=== PATIENT | female | born 1985 | race Caucasian/White ===

== ENCOUNTER 2019-10-21 12:59 | Inpatient (IN) | payer MEDICAID ==
[~2019-10-21] VITALS: Ht 160 cm; Wt 72.7 kg
[2019-10-21] VITALS (7 sets, daily range): BP systolic 105–128; BP diastolic 65–89
--- NOTE | 2019-10-21 13:00 | NUR ---
ADRIAN GRANT presented to unit via W/C from ED, accompanied by S/O FOR REPEAT . ADRIAN GRANT weighed, gowned, voided, and to bed. EFHM and TOCO applied, VS taken. ADRIAN GRANT oriented to bed controls, call light, TV, heat, and A/C controls.
[2019-10-21] MEDS ORDERED: LACTATED RINGERS 1,000 ML IV PRN (13:16)
[2019-10-21] MEDS ORDERED: METOCLOPRAMIDE INJ 10 MG/2 ML (REGLAN) IV ONE (13:30)
[2019-10-21] MEDS ORDERED: CITRIC ACID/SOB CIT (BICITRA) 30 ML UDC PO ONE (13:30)
[2019-10-21] MEDS ORDERED: PROMETHAZINE INJ 25 MG/ML (PHENERGAN) AMP IVP PRN (13:30)
[2019-10-21] MEDS ORDERED: FAMOTIDINE 20MG/2ML IV (PEPCID) IV ONE (13:30)
[2019-10-21 13:47] LABS: AMPHETAMINE SCREEN, URINE NEGATIVE (NEGATIVE); BARBITURATE SCREEN URINE NEGATIVE (NEGATIVE); BENZODIAZEPINES SCREEN URINE NEGATIVE (NEGATIVE); CANNABINOID SCREEN, URINE NEGATIVE (NEGATIVE); COCAINE SCREEN URINE NEGATIVE (NEGATIVE); METHADONE STAT NEGATIVE (NEGATIVE); METHAMPHETAMINE SCREEN URINE S NEGATIVE (NEGATIVE); OPIATE SCREEN URINE NEGATIVE (NEGATIVE); OXYCODONE STAT NEGATIVE (NEGATIVE); PROPOXYPHENE STAT NEGATIVE (NEGATIVE); TRICYCLIC ANTIDEPRESSANTS SCRE NEGATIVE (NEGATIVE)
[2019-10-21] MEDS ORDERED: LACTATED RINGERS 1,000 ML IV ONE (13:49)
[2019-10-21 14:23] LABS: BILIRUBIN,URINE NEGATIVE (NEGATIVE); CLARITY,URINE CLEAR; COLOR,URINE YELLOW; GLUCOSE, URINE (UA) NEGATIVE (NEGATIVE); KETONES,URINE NEGATIVE (NEGATIVE); LEUKOCYTE ESTERASE ,URINE TRACE (NEGATIVE); NITRITE,URINE NEGATIVE (NEGATIVE); PH,URINE 6.5 (5-9); PROTEIN,URINE NEGATIVE (NEGATIVE)
[2019-10-21 14:32] LABS: BACTERIA,URINE TRACE /HPF
[2019-10-21] MEDS ORDERED: ACYC400T PO (15:01)
[2019-10-21] MEDS ORDERED: PREN-37 PO (15:02)
[2019-10-21] MEDS ORDERED: GABA-488 PO (15:02)
[2019-10-21] MEDS ORDERED: SERT100T PO (15:03)
[2019-10-21] MEDS ORDERED: PROM25TA14 PO (15:04)
[2019-10-21] MEDS ORDERED: ACETAMINOPHEN 500 MG TAB (TYLENOL) ONE (15:10)
[2019-10-21] MEDS ORDERED: GABAPENTIN 600 MG (NEURONTIN) TAB ONE (15:11)
[2019-10-21] MEDS: LACTATED RINGERS 1,000 ML IV PRN ×3 (15:12→19:15)
[2019-10-21] MEDS ORDERED: ACETAMINOPHEN 500 MG TAB (TYLENOL) PO ONE (15:15)
[2019-10-21] MEDS ORDERED: GABAPENTIN 600 MG (NEURONTIN) TAB PO ONE (16:30)
[2019-10-21 16:42] LABS: BASOPHILS % (AUTO) 0 % (0-10); EOSINOPHILS # (AUTO) 0.1 10^3/uL (0.0-0.3); EOSINOPHILS % (AUTO) 1 % (0-10); HEMATOCRIT 34 % (35-52); HEMOGLOBIN 11.3 G/DL (11.5-16.0); LYMPHOCYTES # (AUTO) 1.9 X 10^3 (1.0-4.0); LYMPHOCYTES % (AUTO) 11 % (12-44); MEAN CORPUSCULAR HEMOGLOBIN 29 PG (25-34); MEAN CORPUSCULAR HGB CONC 33 G/DL (32-36); MEAN CORPUSCULAR VOLUME 90 FL (80-99); MEAN PLATELET VOLUME 10.8 FL (7.4-10.4); MONOCYTES % (AUTO) 6 % (0-12); NEUTROPHILS # (AUTO) 13.2 X 10^3 (1.8-7.8); NEUTROPHILS % (AUTO) 82 % (42-75); PLATELET COUNT 326 10^3/uL (130-400); RED CELL DISTRIBUTION WIDTH 15.1 % (10.0-14.5); WHITE BLOOD COUNT 16.2 10^3/uL (4.3-11.0)
[2019-10-21] MEDS ORDERED: METOCLOPRAMIDE INJ 10 MG/2 ML (REGLAN) ONE (17:05)
[2019-10-21] MEDS ORDERED: FAMOTIDINE 20MG/2ML IV (PEPCID) ONE (17:06)
[2019-10-21] MEDS ORDERED: CITRIC ACID/SOB CIT (BICITRA) 30 ML UDC ONE (17:06)
[2019-10-21 17:14] LABS: RBC MORPH NORMAL
[2019-10-21 17:17] LABS: BAND NEUTROPHILS 3 %; EOSINOPHILS % (MANUAL) 1 %; LYMPHOCYTES % (MANUAL) 12 %; MONOCYTES % (MANUAL) 9 %; MYELOCYTES % 1 %; NEUTROPHILS % (MANUAL) 73 %
[2019-10-21] MEDS ORDERED: ceFAZolin INJECTION 1,000 MG in WATER (STERILE) FOR INJECTION 10 ML IV ONE (17:30)
[2019-10-21] MEDS ORDERED: fentaNYL INJECTION 100 MCG/2 ML AMP ONE (18:23)
[2019-10-21] MEDS ORDERED: KETAMINE/NaCl 50 MG/5 ML SYRINGE (ED ONLY) ONE (18:23)
[2019-10-21] MEDS ORDERED: MIDAZOLAM 2 MG/2 ML (VERSED) VIAL ONE (19:00)
[2019-10-21] MEDS ORDERED: OXYTOCIN PRE-MIX DRIP 500 ML IV ONE (19:53)
[2019-10-21] MEDS ORDERED: PHENYLEPHRINE 100 MCG/ML 10 ML (ANESTHESIA) SYR ONE (20:03)
[2019-10-21] MEDS ORDERED: KETOROLAC 30 MG/ML VIAL ONE (20:05)
[2019-10-21] MEDS ORDERED: ONDANSETRON 4 MG/2 ML (SDV) Z0FRAN ONE (20:05)
[2019-10-21] MEDS ORDERED: OXYTOCIN PRE-MIX DRIP 1,000 ML IV ONE (20:05)
[2019-10-21] MEDS ORDERED: OXYTOCIN PRE-MIX DRIP 500 ML IV SCH (20:31)
[2019-10-21] MEDS ORDERED: PATIENT MAY USE OWN MED,SINGLE MED PO SCH (20:45)
[2019-10-21] MEDS ORDERED: TETANUS,DIPTH,PERTUSS P/F (BOOSTRIX) 0.5 ML VIAL IM SCH (20:45)
[2019-10-21] MEDS ORDERED: MEASLES,MUMPS,RUBELLA 1 EA INJ SC SCH (20:45)
[2019-10-21] MEDS ORDERED: morphine INJ 4 MG/ML 1 ML (VIAL/SYRINGE) ONE (20:49)
--- NOTE | 2019-10-21 20:49 | Cesarean Section Operative ---
Procedure Procedure Note Pre-operative Diagnosis: Valeria Martino is a 33 /Para 3/ 2,Gestational Age 38 3/7 week previous section, non reassuring testing, history of Suboxone usage, gestational diabetes A2, known ovarian cyst Post-operative Diagnosis: same, severe adhesion, difficult extraction; right ovarian cyst/mass Procedure: repeat low transverse section, right salpingoophorectomy, post hemorrhage Physician: YENIFER SUAREZ Estimated blood loss: 2500 mL Disposition: stable Findings: Viable male infant, Apgars 8/8, pH, weight 7#, intact placenta, 3vc, Uterus with lower uterine segment window/near rupture/ right ovary with two cystic areas and two additional areas of solid mass area. She also had a small solid cystic area on the left tube but this appeared to be a peritubal cyst/embryologic and she also states she "would like to consider another child" and did not wish to have the tube removed. she states she had signed a form to have them removed in [place], but "now i don't know". Indications:Valeria Martino is a 33 year old at 38 3/7 weeks. I saw her for consultation today for repeat section. She was to have delivered in [place] because of history of Suboxone usage. Her PNC was in [place] but her OB wanted her to deliver with a NICU due to risk of YAMIL. However, Dr. Cody is her physician for Suboxone and history of narcotic abuse and Dr. Cody wanted her to deliver here so that she could better assist in her post operative pain management. She has has had Gestational diabetes treated with insulin. However, it appears that she had a 1 hour of over 200 and was non compliant and was given the choice to have the 3 hour or check her blood sugars so she chose to check her blood sugars. It appears by the notes that she was also non compliant with checking, recording and reporting her blood sugars. she was currently taking 14 units of Levemir at bedtime but she did not take the insulin yesterday because her blood sugar was 80 and she had not been eating regularly bc she wasn't hungry. she also reports she hasn't eaten today and that the morning fasting was around 80. She states she has an "luis" and "doesn't feel well". also states she has a history of seizures, but the last time was 2014. She doesn't report the type of seizures and does not see a neurologist. In addition, she states she is having side and back pain. On my exam, she was having an exam. As she is a gestational diabetic and is on Suboxone, thus high risk, and is likely having contractions, I put her on the NST. The baby was non reactive. she did have contractions, but there were no decelerations. labs were drawn and she was sent to the hospital for monitoring and section. She then stated that she had eaten peanut butter and crackers on the way to the hospital at approximately 0945. She was admitted. The fetus did downey ve a slight improvement in status. There were no decelerations or accelerations, but there was improvement in variability with a fluid bolus. she also admitted that she had smoked when she arrived at the office and that she smoked on the way from the office to the hospital. The did not happen at 1700 because of a case in the OR. We were able to go to the operating room about 1830. Blood sugar was 89, blood pressure 116/78 and pulse 80. afebrile. WBC 16,000 Procedure Details: The patient was seen in pre-op and the procedure was discussed with the patient in full, including the risks, benefits, and alternatives. All questions were answered. The patient was taken to the operating room and a time out was per formed, verifying patient and procedure. After spinal anesthesia was placed by our anesthesia colleagues, the patient was placed in the dorsal supine with leftward tilt for uterine displacement.~ Her abdomen was then prepped and draped in the typical sterile fashion. A Pfannenstiel skin incision was made using a scalpel and carried down through the underlying fascia. The fascia was incised in the midline and tented up using Jaimee clamps. On both the inferior and superior fascia side the rectus muscle was dissected off bluntly and sharply using Pinto scissors. The Rectus muscles were noted to be very (diastasis recti) and the peritoneum was identified and entered bluntly in the midline. As I entered the peritoneum, i encountered blood tinged amniotic fluid and the baby. It appeared that there was a near rupture. The fetus was not in the abdomen, likely because there was scarring, but there was a uterine window or rupture and i extended this and delivered the baby. This was difficult so I placed a silastic suction on the head so the baby would not float in the abdomen while I attempted to deliver the baby. Once I had a hold of the baby, I could then extend the uterine incision and then I was able to remove the silastic and deliver the baby in standard fashion. Mouth and nares were suctioned with bulb suction. After the umbilical cord was clamped and cut, the infant was handed off to the pediatric staff. A sample of cord blood was then obtained. Cord gas was sent. pH was 7.24. The placenta was delivered intact via uterine massage. The uterus was exteriorized and cleared of all clots and debris. The uterine incision was closed using 0 Vicryl in a running locked fashion. I had an extended lower uterine incision and that I made to deliver the body of the baby and then a large whole bolow this. This is where the baby was attempting to deliver. At this point, I closed this hole with a layer of 0 vicryl. A second imbricated layer was placed using 0 Vicryl in a running fashion as well. Any areas of bleeding were reinforced with additional sutures. The uterus was flexed forward and the posterior rectouterine space was inspected and cleared of all clots and debris. Again the hysterotomy site was examined and hemostasis was observed. It was not that the tubes and ovaries were examined. The bilateral tubes and ovaries appeared did not normal. The right ovary had two large, collapsed cystic saclike areas, maybe these were collapsed peritubal cysts, but they appeared to have more mucoid fluid in them. The ovary then had two or three firm irregular areas. I told the patient that the right tube and ovary did not appear to be n ormal. On her record it was stated that her maternal grandmother had been diagnosed with ovarian cancer. The patient stated that she did sign a form for a tubal ligation, but that she did not want her other tube removed. I did tell her that the left ovary had a slight abnormal appearance, but that this appeared more fibrotic and the rest of the ovary appeared normal. Also there was a peritubal cyst but this was small and normal in appearance. We will follow up with her at a later date regarding this ovary. She wants to use Depo Provera for contraception following delivery. We will discuss whether an additional is even a good suggestion due to the uterine rupture. The right tube and ovary were grasped with clamps and then transected and suture ligated with 2-0 Vicryl. Due to the nature of the surgery, I did not have Rosales clamps or a LigaSure, so I clamped and then double or triple suture ligated the right infundibulopelvic ligament and then the uteroovarian ligament and then removed the tube and ovary and the entire masses. These were sent for pathology. there was hemostasis, but FloSeal was placed over the site to prevent post operative oozing. The uterus was placed back into the abdominal cavity and abdominal gutters were cleared of all clots and debris. A final check of the uterine incision showed it to be hemostatic. Surgicel was placed over the incision. At this point, I could reinspect the adhesions and prevoius surgery. I could identify the bladder and it was well away from the the dissection. The peritoneum was closed using 3-0 Vicryl in a running fashion. I could not reapproximate the muscles because they were by about 8-10 cm. The fascia was closed with 0 Vicryl in a running fashion. The subcutaneous space was hemostatic, and irrigated. The subcutaneous space was closed with 3-0 Vicryl in several single interrupted stitches. The skin was then closed using 4-0 Monocryl in a running subcuticular fashion. The skin edges were reapproximated together and were hemostatic. A pressure dressing was applied. All sponge, lap and needle counts were correct at the end of the procedure per nursing. Vitals - Labs Vital Signs - I&O Vital Signs Date Time Temp Pulse Resp B/P (MAP) Pulse Ox O2 Delivery O2 Flow Rate FiO2 10/21/19 20:35 36.7 18 117/80 (92) 97 Room Air 10/21/19 16:54 37.1 88 18 108/71 (83) Room Air 10/21/19 13:17 120 128/74 (92) Room Air Labs Laboratory Tests 10/21/19 13:18: Urine Color YELLOW, Urine Clarity CLEAR, Urine pH 6.5, Urine Specific [place] <=1.005, Urine Protein NEGATIVE, Urine Glucose (UA) NEGATIVE, Urine Ketones NEGATIVE, Urine Nitrite NEGATIVE, Urine Bilirubin NEGATIVE, Urine Urobilinogen 0.2, Urine Leukocyte Esterase TRACEH, Urine RBC (Auto) NEGATIVE, Urine RBC NONE, Urine WBC 2-5, Urine Squamous Epithelial Cells 5-10, Urine Crystals NONE, Urine Bacteria TRACE, Urine Casts NONE, Urine Mucus NEGATIVE, Urine Culture Indicated CULTURE PENDING, Urine Opiates Screen NEGATIVE, Urine Oxycodone Screen NEGATIVE, Urine Methadone Screen NEGATIVE, Urine Propoxyphene Screen NEGATIVE, Urine Barbiturates Screen NEGATIVE, Ur Tricyclic Antidepressants Screen NEGATIVE, Urine Phencyclidine Screen NEGATIVE, Urine Amphetamines Screen NEGATIVE, Urine Methamphetamines Screen NEGATIVE, Urine Benzodiazepines Screen NEGATIVE, Urine Cocaine Screen NEGATIVE, Urine Cannabinoids Screen NEGATIVE 10/21/19 14:05: White Blood Count 16.2H, Red Blood Count 3.84L, Hemoglobin 11.3L, Hematocrit 34L , Mean Corpuscular Volume 90, Mean Corpuscular Hemoglobin 29, Mean Corpuscular Hemoglobin Concent 33, Red Cell Distribution Width 15.1H, Platelet Count 326, Mean Platelet Volume 10.8H, Neutrophils (%) (Auto) 82H, Lymphocytes (%) (Auto) 11L, Monocytes (%) (Auto) 6, Eosinophils (%) (Auto) 1, Basophils (%) (Auto) 0, Neutrophils # (Auto) 13.2H, Lymphocytes # (Auto) 1.9, Monocytes # (Auto) 1.0, Eosinophils # (Auto) 0.1, Basophils # (Auto) 0.0, Neutrophils % (Manual) 73, Lymphocytes % (Manual) 12, Monocytes % (Manual) 9, Eosinophils % (Manual) 1, Myelocytes % 1, Band Neutrophils 3, Blood Morphology Comment NORMAL 10/21/19 14:30: Glucometer 89 YENIFER SUAREZ DO Oct 21, 2019 20:49
[2019-10-21] MEDS: morphine INJ 4 MG/ML 1 ML (VIAL/SYRINGE) IV PRN (20:58)
[2019-10-21] MEDS ORDERED: oxyCODONE/APAP 10/325MG (PERCOCET 10) TABLET PO ONE (21:11)
--- NOTE | 2019-10-21 21:30 | NUR ---
Patient to pp room 313 from recovery via bed.
--- NOTE | 2019-10-21 21:35 | NUR ---
Report to Emily Gastelum RN
[2019-10-21] MEDS: GABAPENTIN 600 MG (NEURONTIN) TAB PO SCH (21:45)
[2019-10-21] MEDS ORDERED: CATHETER FLUSH 10 ML SYR IV SCH (22:00)
[2019-10-21] MEDS ORDERED: SERTRALINE 100 MG (ZOLOFT) TAB ONE (22:15)
[2019-10-21] MEDS: SERTRALINE 100 MG (ZOLOFT) TAB PO SCH (22:23)
[2019-10-21] MEDS: DOCUSATE SODIUM 100 MG (COLACE) CAP PO SCH (22:53)
--- NOTE | 2019-10-21 23:11 | NUR ---
Infant returned to mothers room. Mother sitting up in bed watching TV. Pt states medication is not helping with pain, but pt doesn't show s/s of severe pain as she did earlier. Pt is not grimacing with movement. Pt did not ask for more medication at this time.
[2019-10-22] VITALS (9 sets, daily range): BP systolic 99–116; BP diastolic 57–77
[2019-10-22] MEDS: morphine INJ 4 MG/ML 1 ML (VIAL/SYRINGE) IV PRN ×3 (00:03→11:40)
[2019-10-22] MEDS: ACETAMINOPHEN 500 MG TAB (TYLENOL) PO SCH ×3 (00:04→17:18)
--- NOTE | 2019-10-22 02:15 | NUR ---
Pt up to void, void noted, pericare discussed and demonstrated, pt ambulated back to bed with stand by assist only, tolerated well.
[2019-10-22] MEDS: KETOROLAC 30 MG/ML VIAL IV SCH ×4 (03:11→22:47)
[2019-10-22] MEDS: LACTATED RINGERS 1,000 ML IV SCH ×2 (04:22→05:31)
[2019-10-22] MEDS ORDERED: MILK OF MAGNESIA 400 MG/5 ML 30 ML UDC PO PRN (05:00)
[2019-10-22 06:06] LABS: BASOPHILS % (AUTO) 0 % (0-10); EOSINOPHILS % (AUTO) 0 % (0-10); HEMATOCRIT 21 % (35-52); LYMPHOCYTES # (AUTO) 2.1 X 10^3 (1.0-4.0); LYMPHOCYTES % (AUTO) 14 % (12-44); MEAN CORPUSCULAR HEMOGLOBIN 29 PG (25-34); MEAN CORPUSCULAR HGB CONC 33 G/DL (32-36); MEAN CORPUSCULAR VOLUME 90 FL (80-99); MONOCYTES # (AUTO) 0.7 X 10^3 (0.0-1.0); MONOCYTES % (AUTO) 5 % (0-12); NEUTROPHILS # (AUTO) 11.8 X 10^3 (1.8-7.8); NEUTROPHILS % (AUTO) 80 % (42-75); PLATELET COUNT 248 10^3/uL (130-400); RED CELL DISTRIBUTION WIDTH 14.8 % (10.0-14.5); WHITE BLOOD COUNT 14.7 10^3/uL (4.3-11.0)
[2019-10-22 06:24] LABS: HEMOGLOBIN 6.7 G/DL (11.5-16.0)
[2019-10-22] MEDS: FERROUS SULF 325 MG (IRON) TAB PO SCH (07:48)
--- NOTE | 2019-10-22 07:55 | NUR ---
THIS RN TO BEDSIDE. VS OBTAINED. MEDS GIVEN; SEE EMAR FOR FURTHER. INITIAL SHIFT ASSESSMENT COMPLETED; SEE INTERVENTION FOR FURTHER. COKE AND ICE CHIPS PROVIDED PER REQUEST. POC REVIEWED, PT VERBALIZES UNDERSTANDING. PT VOICES THAT SHE HAS ALREADY TAKEN HER NEURONTIN AND SUBUTEX THIS AM. CALL LIGHT WITHIN REACH. S/O AT THE BEDSIDE.
--- NOTE | 2019-10-22 08:13 | Postpartum Progress Note ---
Post Op Post-operative Day #1/ S/p RLTCS PPH, Acute blood loss anemia, RSO due to ovarian mass/cyst Pain is controlled so far. Did start her initially on 10 mg q 4 hour with 4 mg morphine due to increased need for narcotics. Will discuss with Dr. Escobar cordero. She has restarted her own Suboxone. she has restarted her zoloft as well. She states pain is well controlled. she was up in the room last night "cleaning". Has voided and ambulating. She is checking her blood sugars, though I hold her she did not have to. She checked a random blood sugar and it was 196, though she has been drinking sodas. Per her PN records she had not been compliant with checking and recording blood sugars or taking insulin. had not taken insulin the day prior to admission because blood sugar was in the 80s and she had not eaten well and did not eat much the day of the section. Subjective: Patient is without complaints. Ambulating, voiding after rob removed. Tolerating a regular diet without nausea or vomiting. Normal lochia. Pain is well controlled with oral pain medications. Passing flatus. bottle feeding. RN reports she had BM Objective: 10/21/19 10/21/19 10/21/19 10/21/19 20:35 20:35 20:50 21:05 Temp 36.7 36.8 Resp 18 18 B/P (MAP) 117/80 (92) 108/75 (86) Pulse Ox 97 99 O2 Delivery Room Air Room Air Room Air Room Air 10/21/19 10/21/19 10/21/19 10/21/19 21:05 21:24 21:26 21:45 Temp 36.7 36.8 36.5 Pulse 90 Resp 18 18 18 B/P (MAP) 118/89 (99) 127/78 (94) 105/65 (78) Pulse Ox 99 97 98 O2 Delivery Room Air Room Air Room Air Room Air 10/22/19 10/22/19 10/22/19 00:05 04:00 07:46 Temp 36.5 36.5 36.9 Pulse 104 105 109 Resp 18 20 20 B/P (MAP) 116/77 (90) 108/57 (74) 112/71 (85) Pulse Ox 96 96 96 O2 Delivery Room Air Room Air 10/22/19 00:00 Intake Total 2010 ml Output Total 2760 ml Balance -750 ml Laboratory Tests Test 10/21/19 13:18 10/21/19 14:05 10/21/19 14:30 10/22/19 05:50 Range/Units Urine Color YELLOW Urine Clarity CLEAR Urine pH 6.5 5-9 Urine Specific [place] <=1.005 1.016-1.022 Urine Protein NEGATIVE NEGATIVE Urine Glucose (UA) NEGATIVE NEGATIVE Urine Ketones NEGATIVE NEGATIVE Urine Nitrite NEGATIVE NEGATIVE Urine Bilirubin NEGATIVE NEGATIVE Urine Urobilinogen 0.2 < = 1.0 MG/DL Urine Leukocyte Esterase TRACE H NEGATIVE Urine RBC (Auto) NEGATIVE NEGATIVE Urine RBC NONE /HPF Urine WBC 2-5 /HPF Urine Squamous Epithelial Cells 5-10 /HPF Urine Crystals NONE /LPF Urine Bacteria TRACE /HPF Urine Casts NONE /LPF Urine Mucus NEGATIVE /LPF Urine Culture Indicated CULTURE PENDING Urine Opiates Screen NEGATIVE NEGATIVE Urine Oxycodone Screen NEGATIVE NEGATIVE Urine Methadone Screen NEGATIVE NEGATIVE Urine Propoxyphene Screen NEGATIVE NEGATIVE Urine Barbiturates Screen NEGATIVE NEGATIVE Ur Tricyclic Antidepressants Screen NEGATIVE NEGATIVE Urine Phencyclidine Screen NEGATIVE NEGATIVE Urine Amphetamines Screen NEGATIVE NEGATIVE Urine Methamphetamines Screen NEGATIVE NEGATIVE Urine Benzodiazepines Screen NEGATIVE NEGATIVE Urine Cocaine Screen NEGATIVE NEGATIVE Urine Cannabinoids Screen NEGATIVE NEGATIVE White Blood Count 16.2 H 14.7 H 4.3-11.0 10^3/uL Red Blood Count 3.84 L 2.28 L 4.35-5.85 10^6/uL Hemoglobin 11.3 L 6.7 #*L 11.5-16.0 G/DL Hematocrit 34 L 21 L 35-52 % Mean Corpuscular Volume 90 90 80-99 FL Mean Corpuscular Hemoglobin 29 29 25-34 PG Mean Corpuscular Hemoglobin Concent 33 33 32-36 G/DL Red Cell Distribution Width 15.1 H 14.8 H 10.0-14.5 % Platelet Count 326 248 130-400 10^3/uL Mean Platelet Volume 10.8 H 10.0 7.4-10.4 FL Neutrophils (%) (Auto) 82 H 80 H 42-75 % Lymphocytes (%) (Auto) 11 L 14 12-44 % Monocytes (%) (Auto) 6 5 0-12 % Eosinophils (%) (Auto) 1 0 0-10 % Basophils (%) (Auto) 0 0 0-10 % Neutrophils # (Auto) 13.2 H 11.8 H 1.8-7.8 X 10^3 Lymphocytes # (Auto) 1.9 2.1 1.0-4.0 X 10^3 Monocytes # (Auto) 1.0 0.7 0.0-1.0 X 10^3 Eosinophils # (Auto) 0.1 0.0 0.0-0.3 10^3/uL Basophils # (Auto) 0.0 0.0 0.0-0.1 10^3/uL Neutrophils % (Manual) 73 % Lymphocytes % (Manual) 12 % Monocytes % (Manual) 9 % Eosinophils % (Manual) 1 % Myelocytes % 1 % Band Neutrophils 3 % Blood Morphology Comment NORMAL Glucometer 89 70-110 MG/DL Physical Exam: General - Alert and oriented, no apparent distress Abdomen - Soft, appropriately tender to palpation, non-distended, fundus firm at umbilicus Incision - clean, dry and intact; no erythema or induration, no drainage Extremities - 2+ edema, negative Austin's bilaterally Assessment: 1 post-operative day # 1, status post RLTCS, complicated by uterine window and likely early uterine rupture, non reassuring status, rso due to ovarian cyst and firm mass, excessive blood loss uterine repair, suboxone usage due to history of narcotic abuse, anxiety and depression. Recovering well, hemodynamically stable 2. Acute blood loss anemia - she is stable currently 3. gestational diabetes was on levemir at night (14 units) - poor management per previous medical records 4. rubella equiv Plan: Routine post-operative care. Encourage ambulation. VTE prophylaxis: SCDs. Ferrous sulfate supplementation. She has stable vital signs, so will avoid transfusion for now. will recheck hgb at noon. Plan for discharge 2-[address] Cody. Will continues the 10 mg q 4 hours for now. Stop morphine prn. She will face time the patient later today and prepare her for increasing the interval. Will increase to q 6 but continue 10 mg. Continue scheduled tylenol and toradol. will change to scheduled ibuprofen after 48 hours. She will go home on oxycodone/tylenol and ibuprofen and Dr. Cody will manage her post operative pain Addendum - 12 pm hgb was 6.9. she continues to be aymptomatic. Will do an iron infusion. This will not increase her hgb quickly, but may decrease her need for transfusion over the long run. Will also check a1c tomorrow as she continues to check her own fsbs prn. Doubt she is a preexisting diabetic, but she may be. She had poor compliance with checking her blood sugars prior to delivery Vitals - Labs Vital Signs - I&O Vital Signs Date Time Temp Pulse Resp B/P (MAP) Pulse Ox O2 Delivery O2 Flow Rate FiO2 10/22/19 07:46 36.9 109 20 112/71 (85) 96 Room Air 10/22/19 04:00 36.5 105 20 108/57 (74) 96 10/22/19 00:05 36.5 104 18 116/77 (90) 96 Room Air 10/21/19 21:45 36.5 90 18 105/65 (78) 98 Room Air 10/21/19 21:26 36.8 18 127/78 (94) 97 Room Air 10/21/19 21:24 Room Air 10/21/19 21:05 36.7 18 118/89 (99) 99 Room Air 10/21/19 21:05 Room Air 10/21/19 20:50 36.8 18 108/75 (86) 99 Room Air 10/21/19 20:35 Room Air 10/21/19 20:35 36.7 18 117/80 (92) 97 Room Air 10/21/19 16:54 37.1 88 18 108/71 (83) Room Air 10/21/19 13:17 120 128/74 (92) Room Air I & O 10/22/19 07:00 Intake Total 2510 ml Output Total 2760 ml Balance -250 ml Labs Laboratory Tests 10/21/19 13:18: Urine Color YELLOW, Urine Clarity CLEAR, Urine pH 6.5, Urine Specific [place] <=1.005, Urine Protein NEGATIVE, Urine Glucose (UA) NEGATIVE, Urine Ketones NEGATIVE, Urine Nitrite NEGATIVE, Urine Bilirubin NEGATIVE, Urine Urobilinogen 0.2, Urine Leukocyte Esterase TRACEH, Urine RBC (Auto) NEGATIVE, Urine RBC NONE, Urine WBC 2-5, Urine Squamous Epithelial Cells 5-10, Urine Crystals NONE, Urine Bacteria TRACE, Urine Casts NONE, Urine Mucus NEGATIVE, Urine Culture Indicated CULTURE PENDING, Urine Opiates Screen NEGATIVE, Urine Oxycodone Screen NEGATIVE, Urine Methadone Screen NEGATIVE, Urine Propoxyphene Screen NEGATIVE, Urine Barbiturates Screen NEGATIVE, Ur Tricyclic Antidepressants Screen NEGATIVE, Urine Phencyclidine Screen NEGATIVE, Urine Amphetamines Screen NEGATIVE, Urine Methamphetamines Screen NEGATIVE, Urine Benzodiazepines Screen NEGATIVE, Urine Cocaine Screen NEGATIVE, Urine Cannabinoids Screen NEGATIVE 10/21/19 14:05: White Blood Count 16.2H, Red Blood Count 3.84L, Hemoglobin 11.3L, Hematocrit 34L , Mean Corpuscular Volume 90, Mean Corpuscular Hemoglobin 29, Mean Corpuscular Hemoglobin Concent 33, Red Cell Distribution Width 15.1H, Platelet Count 326, Mean Platelet Volume 10.8H, Neutrophils (%) (Auto) 82H, Lymphocytes (%) (Auto) 11L, Monocytes (%) (Auto) 6, Eosinophils (%) (Auto) 1, Basophils (%) (Auto) 0, Neutrophils # (Auto) 13.2H, Lymphocytes # (Auto) 1.9, Monocytes # (Auto) 1.0, Eosinophils # (Auto) 0.1, Basophils # (Auto) 0.0, Neutrophils % (Manual) 73, Lymphocytes % (Manual) 12, Monocytes % (Manual) 9, Eosinophils % (Manual) 1, Myelocytes % 1, Band Neutrophils 3, Blood Morphology Comment NORMAL 10/21/19 14:30: Glucometer 89 10/22/19 05:50: White Blood Count 14.7H, Red Blood Count 2.28L, Hemoglobin 6.7#*L, Hematocrit 21L, Mean Corpuscular Volume 90, Mean Corpuscular Hemoglobin 29, Mean Corpuscular Hemoglobin Concent 33, Red Cell Distribution Width 14.8H, Platelet Count 248, Mean Platelet Volume 10.0, Neutrophils (%) (Auto) 80H, Lymphocytes (%) (Auto) 14, Monocytes (%) (Auto) 5, Eosinophils (%) (Auto) 0, Basophils (%) (Auto) 0, Neutrophils # (Auto) 11.8H, Lymphocytes # (Auto) 2.1, Monocytes # (Auto) 0.7, Eosinophils # (Auto) 0.0, Basophils # (Auto) 0.0 YENIFER SUAREZ DO Oct 22, 2019 08:13
--- NOTE | 2019-10-22 08:45 | Anesthesia-Regional Post-Op ---
Regional Patient Condition Mental Status: Alert, Oriented x3 Circulation: Same as Pre-Op Headache: Absent Sensation: Full Recovery Motor Block: Absent Post Op Complications Complications None Follow Up Care/Instructions Patient Instructions None needed. Anesthesia/Patient Condition Patient is doing well, no complaints, stable vital signs, no apparent adverse anesthesia problems. No complications reported per nursing. TANISHA DANG CRNA Oct 22, 2019 08:45
--- NOTE | 2019-10-22 08:47 | NUR ---
DR. SUAREZ TO PT'S BEDSIDE.
[2019-10-22] MEDS: DOCUSATE SODIUM 100 MG (COLACE) CAP PO SCH ×2 (09:04→20:36)
[2019-10-22] MEDS: GABAPENTIN 600 MG (NEURONTIN) TAB PO SCH ×2 (09:14→20:36)
[2019-10-22] MEDS: BUPRENORPHINE 2 MG SL SCH ×2 (09:15→15:24)
[2019-10-22] MEDS: NICOTINE 21 MG (NICODERM) PATCH TD SCH (10:09)
[2019-10-22 12:08] LABS: BASOPHILS % (AUTO) 0 % (0-10); EOSINOPHILS % (AUTO) 0 % (0-10); HEMATOCRIT 22 % (35-52); LYMPHOCYTES # (AUTO) 1.9 X 10^3 (1.0-4.0); LYMPHOCYTES % (AUTO) 12 % (12-44); MEAN CORPUSCULAR HEMOGLOBIN 29 PG (25-34); MEAN CORPUSCULAR HGB CONC 32 G/DL (32-36); MEAN CORPUSCULAR VOLUME 90 FL (80-99); MEAN PLATELET VOLUME 10.1 FL (7.4-10.4); MONOCYTES % (AUTO) 6 % (0-12); NEUTROPHILS # (AUTO) 13.4 X 10^3 (1.8-7.8); NEUTROPHILS % (AUTO) 82 % (42-75); PLATELET COUNT 273 10^3/uL (130-400); RED CELL DISTRIBUTION WIDTH 14.7 % (10.0-14.5); WHITE BLOOD COUNT 16.4 10^3/uL (4.3-11.0)
[2019-10-22 12:09] LABS: HEMOGLOBIN 6.9 G/DL (11.5-16.0)
--- NOTE | 2019-10-22 14:26 | NUR ---
CM/ODESSA visited with the patient for social service consult. The patient was lying in bed with significant other at bedside holding/feeding baby. The patient stated that she was doing well today. She was willing to talk with this SS. The patient verbalized that this is her 3rd child. CM/SS asked if DCF was involved with any of the children. She stated "no". She did report that her brother and her share custody of her son. Her son goes between them every other week per the patient. He has Diabetes and his medication was not covered by the patient's insurance. CM/SS discussed with the patient if she had everything needed at home for the baby. She states that she does have a crib, clothes, diapers, and other items. She reports that she is already set up with [facility] to help with formula and food. The patient states that she has never utilized any other services . CM/SS researched the resources in the patients area and gave handouts with phone numbers. CM/SS went back up to give the patient and significant other the resource list and CM/SS could hear the patient yelling from down the woo. The patient reported that she was in pain and seemed to have a tolerance to the pain medications. CM/SS inquired about the patients past drug use. She verbalized that she has used substances in the past but has not recently. The patient went back and forth on stating it had been a year since past use and since April. TO/SS is unsure if the information is accurate. The patients toxicology screen was negative. The patient reports that she went to treatment for her substance use and is clean at this time. The patients significant other was calm during this visit and appeared to be bonding well with the baby. He is not the baby's biological father but will be the one adopting the baby. He presented as calm and interested in resources. He reports he will contact the resource numbers. No other needs at this time.
[2019-10-22] MEDS ORDERED: IRON SUCROSE 200 MG/10 ML (VENOFER) VIAL IV NR (15:45)
[2019-10-22] MEDS: SERTRALINE 100 MG (ZOLOFT) TAB PO SCH (20:37)
[2019-10-23] MEDS ORDERED: IBUPROFEN 600 MG (MOTRIN) TAB PO SCH
[2019-10-23] MEDS: ACETAMINOPHEN 500 MG TAB (TYLENOL) PO SCH ×3 (02:22→19:57)
[2019-10-23 02:25] VITALS: BP 105/68
[2019-10-23 05:20] LABS: BASOPHILS % (AUTO) 0 % (0-10); EOSINOPHILS # (AUTO) 0.1 10^3/uL (0.0-0.3); EOSINOPHILS % (AUTO) 1 % (0-10); LYMPHOCYTES # (AUTO) 1.4 X 10^3 (1.0-4.0); LYMPHOCYTES % (AUTO) 10 % (12-44); MEAN CORPUSCULAR HEMOGLOBIN 29 PG (25-34); MEAN CORPUSCULAR HGB CONC 32 G/DL (32-36); MEAN CORPUSCULAR VOLUME 90 FL (80-99); MEAN PLATELET VOLUME 10.6 FL (7.4-10.4); MONOCYTES # (AUTO) 0.9 X 10^3 (0.0-1.0); MONOCYTES % (AUTO) 6 % (0-12); NEUTROPHILS # (AUTO) 11.6 X 10^3 (1.8-7.8); NEUTROPHILS % (AUTO) 83 % (42-75); PLATELET COUNT 267 10^3/uL (130-400); RED CELL DISTRIBUTION WIDTH 14.6 % (10.0-14.5)
--- NOTE | 2019-10-23 05:22 | NUR ---
distribution tech called with patient results of Hgb of 6.0 and Hct of 20 at this time. Will notify physician of critical result.
[2019-10-23 05:23] LABS: HEMATOCRIT 20 % (35-52); HEMOGLOBIN 6.3 G/DL (11.5-16.0)
[2019-10-23 05:34] VITALS: BP 94/55
[2019-10-23] MEDS: KETOROLAC 30 MG/ML VIAL IV SCH (05:34)
--- NOTE | 2019-10-23 05:34 | NUR ---
To patient room at this time. Patient sleeping soundly but easy to arouse to name. VS taken. Patient states she continues to get up to bathroom without issues, denies feeling unsteady or lightheaded when walking. Patient states bleeding remains scant with no clots being passed. Call light remains within reach.
--- NOTE | 2019-10-23 05:45 | NUR ---
This RN called Dr Aguilar to notify of critical lab values reported per lab. Notified of delivery EBL of 2500mL, latest vs, patient denying lightheadedness, or difficulty when up on feet, as well as iron medications patient has received. No new orders received at this time.
[2019-10-23] MEDS: BUPRENORPHINE 2 MG SL SCH ×2 (08:02→15:44)
[2019-10-23] MEDS: DOCUSATE SODIUM 100 MG (COLACE) CAP PO SCH ×2 (08:02→19:57)
[2019-10-23] MEDS: GABAPENTIN 600 MG (NEURONTIN) TAB PO SCH ×2 (08:02→21:20)
[2019-10-23] MEDS: FERROUS SULF 325 MG (IRON) TAB PO SCH ×2 (08:02→17:47)
--- NOTE | 2019-10-23 08:05 | NUR ---
This RN to room for medication admin. While at bedside, Pt pulls out IV. Also note nicotine patch laying on bedside table. When asked, pt states it fell off "earlier this morning".
--- NOTE | 2019-10-23 09:00 | Postpartum Progress Note ---
Note Note Day # 2 Subjective: Patient is without complaints. Ambulating, voiding. Tolerating a regular diet without nausea or vomiting. Normal lochia. Pain is well controlled with oral pain medications. Denies lightheadness or dizziness upon ambulation Objective: Physical Exam: General - Alert and oriented, no apparent distress Abdomen - Soft, appropriately tender to palpation, non-distended, fundus firm at umbilicus Extremities - no edema, negative Austin's bilaterally Incision - c/d/i Assessment: POD 2 RLTCS Acute blood loss anemia Hx of [place] drug use working with [facility] Tobacco use Plan: Routine care. Encourage breast feeding. Encourage ambulation. Ferrous sulfate supplementation. Repeat Hgb later today, drop overnight likely dilutional with IV infusions from yesterday. Plan for discharge later today or tomorrow Vitals - Labs Vital Signs - I&O Vital Signs Date Time Temp Pulse Resp B/P (MAP) Pulse Ox O2 Delivery O2 Flow Rate FiO2 10/23/19 05:34 36.4 93 18 94/55 (68) 95 Room Air 10/23/19 02:25 36.6 108 18 105/68 (80) 95 Room Air 10/22/19 21:00 105 18 105/62 (76) 96 Room Air 10/22/19 20:10 105 18 106/61 (76) 96 Room Air 10/22/19 20:06 103 18 107/65 (79) 97 Room Air 10/22/19 20:03 36.8 107 18 103/64 (77) 97 Room Air 10/22/19 17:17 36.5 108 18 107/61 (76) 95 Room Air 10/22/19 13:05 36.5 101 18 99/63 (75) 97 Room Air Labs Laboratory Tests 10/22/19 12:00: White Blood Count 16.4H, Red Blood Count 2.39L, Hemoglobin 6.9*L, Hematocrit 22L , Mean Corpuscular Volume 90, Mean Corpuscular Hemoglobin 29, Mean Corpuscular Hemoglobin Concent 32, Red Cell Distribution Width 14.7H, Platelet Count 273, Mean Platelet Volume 10.1, Neutrophils (%) (Auto) 82H, Lymphocytes (%) (Auto) 12, Monocytes (%) (Auto) 6, Eosinophils (%) (Auto) 0, Basophils (%) (Auto) 0, Neutrophils # (Auto) 13.4H, Lymphocytes # (Auto) 1.9, Monocytes # (Auto) 1.0, Eosinophils # (Auto) 0.0, Basophils # (Auto) 0.0 10/23/19 05:05: White Blood Count 14.0H, Red Blood Count 2.16L, Hemoglobin 6.3*L, Hematocrit 20*L, Mean Corpuscular Volume 90, Mean Corpuscular Hemoglobin 29, Mean Corpuscular Hemoglobin Concent 32, Red Cell Distribution Width 14.6H, Platelet Count 267, Mean Platelet Volume 10.6H, Neutrophils (%) (Auto) 83H, Lymphocytes (%) (Auto) 10L, Monocytes (%) (Auto) 6, Eosinophils (%) (Auto) 1, Basophils (%) (Auto) 0, Neutrophils # (Auto) 11.6H, Lymphocytes # (Auto) 1.4, Monocytes # (Auto) 0.9, Eosinophils # (Auto) 0.1, Basophils # (Auto) 0.0 Microbiology 10/21/19 Urine Culture - Final, Complete 3 or more isolates HERI SARAVIA DO Oct 23, 2019 09:00
[2019-10-23] MEDS: NICOTINE PATCH REMOVAL TP SCH (09:02)
--- NOTE | 2019-10-23 09:09 | NUR ---
Dr Aguilar to room to see pt and discuss plan of care.
[2019-10-23] MEDS ORDERED: DCS100C PO (09:16)
[2019-10-23] MEDS ORDERED: IBUP-844 PO (09:16)
--- NOTE | 2019-10-23 09:19 | Discharge Inst-Women's Service ---
Discharge Inst-Women's Serv Depart Medication/Instructions New, Converted or Re-Newed RX: RX on Chart Final Diagnosis POD 2 RLTCS Problems Reviewed?: Yes Consults/Follow Up Additional Follow Up: Yes Orders/Referrals Dr. Garcia in 7-10 days Activity Activity: Activity as Tolerated Driving Instructions: No Driving for 1 Week NO SMOKING: NO SMOKING Nothing Inside Vagina: No Douching, No [place], No Tampons Diet Discharge Diet: No Restrictions Symptoms to Report to : Bleeding Excessive, Pain Increased, Fever Over 101 Degrees F, Vaginal Bleeding Increase, Questions/Concerns For Any Problems or Questions: Contact Your Physician Skin/Wound Care Infection Signs and Symptoms: Increased Redness, Foul Odor of Wound, Increased Drainage, Skin Itchy or Has a Rash, Increased Swelling, Temperature Above 101 F Operative Area Clean and Dry: Keep Incision Clean/Dry Stitches/[place]/Dermabond: Dermabond, Care of Stitches Bathing Instructions: HERI Navarro DO Oct 23, 2019 09:19
[2019-10-23 09:40] VITALS: BP 102/62
[2019-10-23] MEDS: NICOTINE 21 MG (NICODERM) PATCH TD SCH (09:42)
--- NOTE | 2019-10-23 09:45 | NUR ---
Abdominal binder provided and applied at this time.
[2019-10-23 12:28] LABS: MEAN PLATELET VOLUME 10.8 FL (7.4-10.4); RED CELL DISTRIBUTION WIDTH 14.7 % (10.0-14.5); WHITE BLOOD COUNT 16.2 10^3/uL (4.3-11.0)
[2019-10-23 12:31] LABS: HEMOGLOBIN 6.5 G/DL (11.5-16.0)
[2019-10-23 12:56] VITALS: BP 128/71
[2019-10-23] MEDS ORDERED: KETOROLAC 30 MG/ML VIAL IM SCH (14:45)
--- NOTE | 2019-10-23 19:55 | NUR ---
Nurse at pt bedside. Pt. in bathroom at this time. States she does not need any help but requests more pads, socks, a toothbrush, and pain meds at this time. All provided and pt helped back to bed.
[2019-10-23] MEDS: IBUPROFEN 600 MG (MOTRIN) TAB PO SCH (19:57)
[2019-10-23 20:00] VITALS: BP 113/57
[2019-10-23] MEDS: SERTRALINE 100 MG (ZOLOFT) TAB PO SCH (21:20)
[2019-10-24 02:27] VITALS: BP 104/66
[2019-10-24] MEDS: IBUPROFEN 600 MG (MOTRIN) TAB PO SCH ×3 (02:30→14:50)
--- NOTE | 2019-10-24 05:00 | NUR ---
Nurse at pt bedside for Tylenol administration. Infant is fussing and crying in open air crib. Pt. and SO are sleeping soundly at this time. Pt. woken and given Tylenol. Nurse then asks if she would like me to hand her the baby to soothe it. Pt. did not respond. Nurse asked again if she would like her baby since he was crying. This time she refused the baby but woke up the SO to take him. At this time lab walked in to take the baby to the nursery for blood draw. Pt. has not held or fed infant on my shift. SO has been attentive to .
[2019-10-24] MEDS: ACETAMINOPHEN 500 MG TAB (TYLENOL) PO SCH ×2 (05:07→14:51)
[2019-10-24] MEDS: DOCUSATE SODIUM 100 MG (COLACE) CAP PO SCH (08:33)
[2019-10-24] MEDS: BUPRENORPHINE 2 MG SL SCH ×2 (08:33→14:50)
[2019-10-24] MEDS: GABAPENTIN 600 MG (NEURONTIN) TAB PO SCH (08:33)
[2019-10-24] MEDS: NICOTINE PATCH REMOVAL TP SCH (08:34)
[2019-10-24] MEDS: FERROUS SULF 325 MG (IRON) TAB PO SCH (08:34)
[2019-10-24] MEDS: NICOTINE 21 MG (NICODERM) PATCH TD SCH (08:34)
[2019-10-24 08:44] VITALS: BP 108/71
--- NOTE | 2019-10-24 09:52 | Postpartum Progress Note ---
Post Op Post-operative Day # s/p RLTCS Subjective: Patient is without complaints. Ambulating, voiding after rob removed. Tolerating a regular diet without nausea or vomiting. Normal lochia. Pain is well controlled with oral pain medications. Passing flatus. [] feeding. [] Objective: [] Physical Exam: General - Alert and oriented, no apparent distress Abdomen - Soft, appropriately tender to palpation, non-distended, fundus firm at umbilicus Incision - clean, dry and intact; no erythema or induration, no drainage Extremities - no edema, negative Austin's bilaterally [] Assessment: [] post-operative day # [], status post []. Recovering well, hemodynamically stable Acute blood loss anemia [] Plan: Routine post-operative care. Encourage breast feeding. Encourage ambulation. VTE prophylaxis: SCDs. Ferrous sulfate supplementation. Plan for discharge [] Vitals - Labs Vital Signs - I&O Vital Signs Date Time Temp Pulse Resp B/P (MAP) Pulse Ox O2 Delivery O2 Flow Rate FiO2 10/24/19 08:44 36.5 98 16 108/71 (83) 99 Room Air 10/24/19 02:27 36.6 90 16 104/66 (79) 95 Room Air 10/23/19 20:00 37.1 109 22 113/57 (75) 97 Room Air 10/23/19 12:56 36.8 103 18 128/71 (90) 95 Room Air Labs Laboratory Tests 10/23/19 12:00: White Blood Count 16.2H, Red Blood Count 2.26L, Hemoglobin 6.5*L, Hematocrit 21L , Mean Corpuscular Volume 91, Mean Corpuscular Hemoglobin 29, Mean Corpuscular Hemoglobin Concent 32, Red Cell Distribution Width 14.7H, Platelet Count 292, Mean Platelet Volume 10.8H Microbiology 10/21/19 Urine Culture - Final, Complete 3 or more isolates YENIFER SUAREZ DO Oct 24, 2019 09:52
[2019-10-24] MEDS ORDERED: FUROSEMIDE 20 MG (LASIX) TAB PO SCH (10:00)
--- NOTE | 2019-10-24 12:30 | NUR ---
CARE ASSUMED OF THIS PATIENT. THIS RN TOOK REPORT AND THEN UNABLE TO CARE FOR PT HAD AN EMERGENCY SITUATION ON THIS UNIT. CARE GIVEN BY ABRAM GUNTER RN AND SAVAGE MUSTAFA RN.
--- NOTE | 2019-10-24 12:50 | NUR ---
PT CALLED THIS RN TO ROOM TO ASK FOR PAIN MEDICINE. S.O. FEEDING BABY. PT EATING.
[2019-10-24 13:05] VITALS: BP 105/66
--- NOTE | 2019-10-24 13:45 | NUR ---
CARES ASSUMED BY THIS RN AT THIS TIME.
--- NOTE | 2019-10-24 17:05 | NUR ---
Dr. Garcia notified of pt infant being transferred to higher level of care. Dr. Garcia to complete discharge orders.
[2019-10-24] MEDS ORDERED: NICO1PAT34 TD (17:35)
[2019-10-24] MEDS ORDERED: ACET-93 PO (17:35)
[2019-10-24] MEDS ORDERED: OXYC5TAB96 PO (17:35)
[2019-10-24] MEDS ORDERED: FURO20TA4 PO (17:35)
[2019-10-24] MEDS ORDERED: FERR325T18 PO (17:35)
[2019-10-24] MEDS ORDERED: GABA-488 PO (17:35)
--- NOTE | 2019-10-24 18:20 | NUR ---
Discharge instructions explained to pt and copy provided along with prescriptions. Pt verbalizes understanding of instructions, signs to verify. Denies questions or concerns at this time.
--- NOTE | 2019-10-24 19:00 | NUR ---
Subutex home med returned to pt at this time. Medication counted per this RN with pt. Pt signs to verify count.
--- NOTE | 2019-10-26 13:09 | Physician Query Clarification ---
[facility] Path Diagnosis Admission/Discharge Admission Date: Oct 21, 2019 at 13:04 Discharge Date: Oct 24, 2019 at 19:00 The medical record reflects the following: right ovarian cyst The pathology report findings document: right ovarian serous cystoadenofibroma Question: Do you agree with the pathology report findings of right ovarian serous cystoadenofibroma ? Please document a response in Progress Notes or Discharge Summary. 1. 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 2. No - Do not agree with pathology findings of right ovarian serous cystoadenofibroma. 3. Other, with explanation of the clinical findings. 4. Clinically undetermined, no explanation for the clinical findings. Is is appropriate for a provider to add additional documentation (addenda) to the record to explain the evaluation & care up to 30 days post-discharge. See [facility] and Patient Record Guidelines below. The [facility] Chapter Record of Care, Standard; [id number].01.03.01EP 1: "The hospital has a written policy that required timely entry of information into the medical record." According to [facility] Patient Record Guidelines, ARTICLE XXI. CORRECTIONS AND ADDENDA, Modifications (addenda amendments, corrections and retractions) should be made timely and no later than regulatory requirements for record completion (i.e. 30 days post discharge). Official coding guidelines require coders to query the physician for agreement with pathology findings that occur during the encounter. Coders are not allowed to pull information directly from the path reports. PHYSICIAN RESPONSE Pathology Report Findings: Yes,agree w/path dx as documented Explanation of clincal finding However, documentation was done prior to path report. Therefore it is accurate base on the date of the report. Please remember a lack of response to the above will prompt a phone page by [facility] /Coding staff. In responding to this query, please exercise your independent professional judgment. The purpose of this communication is to more accurately reflect the complexity of your patients condition. The fact that a question is asked does not imply that any particular answer is desired or expected. Thank you for your timely response to this clarification. Requestors name: Jolene THIS PHYSICIAN QUERY FORM IS A PERMANENT PART OF THE MEDICAL RECORD JOLENE DUVAL Oct 26, 2019 13:09 HERI SARAVIA DO Oct 27, 2019 08:00
== END 2019-10-24 19:00 | disposition home or self-care (01) | DRG 783 ==
LOC: WSo 12:59 → LDRP 13:04
PROVIDERS: ADMIT Obstetrics & Gynecology; ATTEND Obstetrics & Gynecology
PROC: 0UT50ZZ Resection of Right Fallopian Tube, Open Approach (ICD-10-PCS; 2019-10-21)
PROC: 0UT00ZZ Resection of Right Ovary, Open Approach (ICD-10-PCS; 2019-10-21)
PROC: 10D00Z1 Extraction of Products of Conception, Low, Open Approach (ICD-10-PCS; principal; 2019-10-21 18:54)
DX: O34.211 Maternal care for low transverse scar from previous cesarean delivery (principal); O71.1 Rupture of uterus during labor; O72.1 Other immediate postpartum hemorrhage; O90.81 Anemia of the puerperium; D62 Acute posthemorrhagic anemia; O24.424 Gestational diabetes mellitus in childbirth, insulin controlled; O34.83 Maternal care for other abnormalities of pelvic organs, third trimester; D27.0 Benign neoplasm of right ovary; Z37.0 Single live birth; Z3A.38 38 weeks gestation of pregnancy; O99.334 Smoking (tobacco) complicating childbirth; F17.200 Nicotine dependence, unspecified, uncomplicated; O99.344 Other mental disorders complicating childbirth; F41.9 Anxiety disorder, unspecified; F32.9 Major depressive disorder, single episode, unspecified; Z91.19 Patient's noncompliance with other medical treatment and regimen; Z79.891 Long term (current) use of opiate analgesic; Z80.49 Family history of malignant neoplasm of other genital organs
CPT/HCPCS: 36415; 80306; 81000; 82962; 83036; 85007; 85025; 85027; 86850; 86900; 86901; 87088; 88307